=== PATIENT | male | born 1955 | race Caucasian/White ===

== ENCOUNTER 2016-06-04 09:50 | Inpatient (IN) | payer BC ==
[2016-06-04] MEDS ORDERED: DILTIAZEM HCL/D5W 125 MG/125 ML RTUINJ IV ONE (10:03)
[2016-06-04] MEDS ORDERED: DILTIAZEM HCL INJ 25 MG/5 ML VIAL ONE (10:03)
[2016-06-04] MEDS ORDERED: ASPIRIN 81 MG TABLET, CHEWABLE PO ONE (10:09)
[2016-06-04] MEDS ORDERED: DILTIAZEM HCL/D5W 125 ML IV PRN (10:11)
[2016-06-04] MEDS ORDERED: DILTIAZEM HCL INJ 25 MG/5 ML VIAL IV ONE (10:11)
[2016-06-04 10:23] LABS: ABSOLUTE BASOPHILS # (AUTO) 0.1 10^3/uL (0.0-0.2); ABSOLUTE EOSINOPHILS # (AUTO) 0.2 10^3/uL (0.0-0.6); ABSOLUTE LYMPHOCYTES (AUTO) 2.5 10^3/uL (0.5-4.7); ABSOLUTE MONOCYTES (AUTO) 0.8 10^3/uL (0.1-1.4); ABSOLUTE NEUT (AUTO) 8.4 10^3/uL (1.7-8.2); BASOPHILS % (AUTO) 0.8 % (0-2); EOSINOPHILS % (AUTO) 1.7 % (0-6); HEMATOCRIT 40.7 % (37.9-51.0); HEMOGLOBIN 13.3 g/dL (13.5-17.0); HGB HCT DIFFERENCE -0.8; LYMPHOCYTES % (AUTO) 20.8 % (13-45); MEAN CORPUSCULAR HEMOGLOBIN 27.4 pg (27.0-33.4); MEAN CORPUSCULAR HGB CONC 32.7 g/dL (32.0-36.0); MEAN CORPUSCULAR VOLUME 84 fl (80-97); MONOCYTES % (AUTO) 6.4 % (3-13); RED BLOOD COUNT 4.85 10^6/uL (4.35-5.55); SEGMENTED NEUTROPHILS % (AUTO) 70.3 % (42-78); WHITE BLOOD COUNT 11.9 10^3/uL (4.0-10.5)
--- NOTE | 2016-06-04 10:23 | ER Document Report ---
ED Cardiac - General Chief Complaint: Chest Pain > 30 Stated Complaint: CHEST PAIN Time seen by provider: 10:19 Mode of Arrival: Ambulatory Information source: Patient Notes: This is a 61-year-old man with no prior medical problems who presents to the emergency room with 2 days gradual onset of shortness of breath and dyspnea on exertion. The patient does report palpitations. The patient denies any chest pain. He denies any recent fevers, chills, or illnesses. No history of GI bleeding. No history of coronary artery disease. No history of strokes. No history of an irregular heartbeat. Past medical history: None Past surgical history: None Medicines: None No known drug allergies Social: Denies alcohol, last smoked 15 years ago (15 year pack history before then). TRAVEL OUTSIDE OF THE [place] IN LAST 30 DAYS: No - HPI Patient complains to provider of: Palpitations, Shortness of breath Use of: denies: Alcohol, Amphetamines, Bath salts, Caffeine, Cocaine, Decongestants, Other Was the onset of pain: Gradual Chest pain location: No: Substernal, Axillary, Back, Pleuritic, Under breast, Other Quality of pain: denies: None, Constant, Intermittent, Mild, Moderate, Severe, Achy, Burning, Constriction, Cramping, Crushing, Dull, Heaviness, Incisional, Indigestion, Numbness, Pressure, Radiating, Sharp, Stabbing, Tearing, Throbbing , Tightness, Tingling, Other Chest pain radiation location: denies: Left jaw, Left arm, Left shoulder, Right jaw, Right arm, Right shoulder, Back, Neck, None Severity now: None Pain level currently: Denies Cardiac risk factors: Hypertension, Smoker - [id number] history Associated symptoms: Shortness of breath Exacerbated by: Activity Relieved by: Rest Similar symptoms previously: No Recently seen / treated by doctor: No - Related Data Allergies/Adverse Reactions: No Known Allergies Allergy (Verified 06/04/16 12:53) Home Medications: Current Home Medications No Home Medications 06/04/16 [History] Past Medical History - General Information source: Patient - Social History Smoking Status: Former Smoker Cigarette use (# per day): No Chew tobacco use (# tins/day): No Smoking Education Provided: No Frequency of alcohol use: None Drug Abuse: None Lives with: Alone Family History: Reviewed & Not Pertinent Patient has suicidal ideation: No Patient has homicidal ideation: No - Medical History Medical History: Negative Surgical Hx: Negative Review of Systems - Review of Systems Constitutional: denies: Chills, Fever EENT: No symptoms reported Cardiovascular: See HPI Respiratory: See HPI Gastrointestinal: No symptoms reported Genitourinary: No symptoms reported Male Genitourinary: No symptoms reported Musculoskeletal: No symptoms reported Skin: No symptoms reported Hematologic/Lymphatic: No symptoms reported Neurological/Psychological: No symptoms reported Physical Exam - Vital signs Vitals: Resp BP Pulse Ox 35 H 186/130 H 99 06/04/16 10:02 06/04/16 10:02 06/04/16 10:02 Notes: Physical exam: GENERAL: 61-year-old man, looks somewhat apprehensive, tachypnea, oxygen saturation 99% on 2 L. He denies chest pain at this time. He is hypertensive and tachycardic with a ventricular rate of 190. HEAD: Atraumatic, normocephalic. EYES: Pupils equal round and reactive to light, extraocular movements intact, sclera anicteric, conjunctiva are normal. ENT: TMs normal, nares patent, oropharynx clear without exudates. Moist mucous membranes. NECK: Normal range of motion, supple without lymphadenopathy or JVD. LUNGS: Breath sounds clear to auscultation bilaterally and equal. No wheezes rales or rhonchi. HEART: Tachycardia and irregular without murmurs, rubs or gallops. ABDOMEN: Soft, normoactive bowel sounds. No tenderness to palpation. No guarding, no rebound. No masses appreciated. EXTREMITIES: 1+ edema lower extremities bilaterally NEUROLOGICAL: Cranial nerves II through XII grossly intact. Normal speech, normal gait. PSYCH: Normal mood, normal affect. SKIN: Warm, Dry, normal turgor, no rashes or lesions noted. Course - Vital Signs Vital signs: Temp Pulse Resp BP Pulse Ox 97.8 F 140 H 20 137/97 H 96 06/04/16 17:57 06/04/16 18:45 06/04/16 17:57 06/04/16 18:30 06/04/16 17:57 - Laboratory Result Diagrams: 06/04/16 10:06 06/04/16 10:06 Laboratory results interpreted by me: 06/04/16 06/04/16 06/04/16 10:06 10:06 10:06 WBC 11.9 H Hgb 13.3 L RDW 15.0 H Absolute Neutrophils 8.4 H BUN 21 H Glucose 129 H ALT 85 H NT-Pro-B Natriuret Pep 6910 H TSH 06/04/16 10:06 WBC Hgb RDW Absolute Neutrophils BUN Glucose ALT NT-Pro-B Natriuret Pep TSH 0.39 L - Diagnostic Test Radiology reviewed: Image reviewed, Reports reviewed - Chest x-ray shows pulmonary congestion - EKG Interpretation by Fl Rate: Tachycardia Rhythm: A.Fib - EKG shows atrial fibrillation with a ventricular rate of 190, no acute ST changes. Critical Care Note - Critical Care Note Total time excluding time spent on procedures (mins): 90 Discharge - Discharge Clinical Impression: Atrial fibrillation with RVR, CHF Condition: Serious Disposition: ADMITTED INPATIENT Admitting Provider: Hospitalist - Dr Kruse Unit Admitted: [facility]
[2016-06-04 10:32] LABS: PROTHROMBIN TIME 13.6 SEC (11.4-15.4)
[2016-06-04 10:40] LABS: ALANINE AMINOTRANSFERASE 85 U/L (21-72); ALKALINE PHOSPHATASE 74 U/L (38-126); ANION GAP 14 (5-19); ASPARTATE AMINO TRANSFERASE 51 U/L (17-59); BILIRUBIN,TOTAL 0.9 mg/dL (0.2-1.3); BLOOD UREA NITROGEN 21 mg/dL (7-20); CALCIUM 9.2 mg/dL (8.4-10.2); CARBON DIOXIDE 22 mmol/L (22-30); CHLORIDE 102 mmol/L (98-107); CREATINE KINASE 93 U/L (55-170); CREATININE RESULT 1.03 mg/dL (0.52-1.25); GLUCOSE 129 mg/dL (75-110); MAGNESIUM 2.1 mg/dL (1.6-2.3); POTASSIUM 4.6 mmol/L (3.6-5.0); SODIUM 137.9 mmol/L (137-145); TOTAL PROTEIN 7.3 g/dL (6.3-8.2)
[2016-06-04 10:55] LABS: CREATINE KINASE MB 2.95 ng/mL (<4.55); TROPONIN I 0.03 ng/mL
[2016-06-04 11:13] LABS: THYROID STIMULATING HORMONE 0.39 uIU/mL (0.47-4.68)
--- NOTE | 2016-06-04 13:01 | EKG REPORT ---
SEVERITY:- ABNORMAL ECG - ATRIAL FIBRILLATION/ FLUTTER WITH RAPID V-RATE BORDERLINE RIGHT AXIS DEVIATION LOW VOLTAGE IN FRONTAL LEADS ST DEPRESSION, PROBABLY RATE RELATED : Confirmed by: Roney Saini 04-Jun-2016 13:00:09
[2016-06-04] MEDS ORDERED: ENOXAPARIN SODIUM INJ 100 MG/1 ML DISP.SYRIN SUBCUT ONE (13:52)
[2016-06-04] MEDS ORDERED: FUROSEMIDE INJ/PF 40 MG/4 ML SDV IV ONE (13:53)
[2016-06-04] MEDS ORDERED: ACETAMINOPHEN 325 MG TABLET PO PRN (14:48)
[2016-06-04] MEDS ORDERED: ONDANSETRON HCL INJ/PF 4 MG/2 ML SDV IV PRN (14:54)
--- NOTE | 2016-06-04 15:13 | PDOC H&P ---
History of Present Illness Admission Date/PCP: 06/04/16 14:28 Patient complains of: Shortness of breath on exertion History of Present Illness: SAVANNAH TAVARES is a 61 year old male, with no significant past medical history started to develop shortness of breath on exertion for the past 4-5 days. 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 Patient dies physical activity with lifting and carrying heavy loads by denies having any symptoms of chest pain. For the past 5 days however he started to develop dyspnea on exertion. There is no nausea or vomiting. No chest pain at all. There is no diaphoresis. No dizziness or lightheadedness. Denies paroxysmal nocturnal dyspnea or any orthopnea. Patient likewise started to develop lower extremity edema at about the same time. The patient went to the emergency room because of increasing symptoms. Heart rate noted to be 190. The patient was given Cardizem intravenously as reportedly patient is on rapid atrial fibrillation. Eventually he was maintained on the drip and was referred for admission. The patient denies intake of caffeine but he admits taking some mucolytic and possible decongestants [id number]. He has been taking it for the past 4-5 days. He has some mild chest congestion otherwise no sinus congestion or pressure. Past Medical History Medical History: None - Patient denies any at all Past Surgical History Past Surgical History: Reports: Cardiac Catheterization - "negative" Social History Information Source: Patient Smoking Status: Former Smoker Frequency of Alcohol Use: Rare Hx Recreational Drug Use: No Drugs: None Family History Family History: CVA, Other - Heart disease Parental Family History Reviewed: Yes Children Family History Reviewed: Yes Sibling(s) Family History Reviewed.: Yes Medication/Allergy Home Medications: No Home Medications 06/04/16 Allergies/Adverse Reactions: No Known Allergies Allergy (Verified 06/04/16 12:53) Review of Systems Constitutional: ABSENT: chills, fever(s), headache(s), night sweats, weight gain , weight loss Eyes: ABSENT: visual disturbances Ears: ABSENT: hearing changes Nose, Mouth, and Throat: ABSENT: mouth pain, sore throat Cardiovascular: PRESENT: dyspnea on exertion, edema, orthropnea. ABSENT: chest pain, palpitations Respiratory: PRESENT: cough - Minimal, dyspnea. ABSENT: hemoptysis Gastrointestinal: ABSENT: abdominal pain, constipation, diarrhea, hematemesis, hematochezia, melena, nausea, vomiting Genitourinary: ABSENT: dysuria, hematuria Musculoskeletal: ABSENT: joint swelling Integumentary: ABSENT: pruritus, rash, wounds Neurological: ABSENT: abnormal gait, abnormal speech, confusion, dizziness, focal weakness, syncope Psychiatric: ABSENT: anxiety, depression, homidical ideation, suicidal ideation Endocrine: ABSENT: cold intolerance, heat intolerance, polydipsia, polyuria Hematologic/Lymphatic: ABSENT: easy bleeding, easy bruising Physical Exam Vital Signs: Temp Pulse Resp BP Pulse Ox 125 H 24 H 161/110 H 96 06/04/16 12:29 06/04/16 14:00 06/04/16 13:31 06/04/16 14:00 General appearance: PRESENT: no acute distress, well-developed, well-nourished Head exam: PRESENT: atraumatic, normocephalic Eye exam: PRESENT: conjunctiva pink, EOMI, PERRLA. ABSENT: scleral icterus Ear exam: PRESENT: normal external ear exam Mouth exam: PRESENT: moist, neck supple, tongue midline Throat exam: ABSENT: post pharyngeal erythema, tonsillar erythema Neck exam: ABSENT: carotid bruit, JVD, lymphadenopathy, thyromegaly Respiratory exam: PRESENT: decreased breath sounds - Lower lung yanes bilateral , rales - Lower lung yanes bilaterally. ABSENT: rhonchi, wheezes Cardiovascular exam: PRESENT: irregular rhythm, +S1, +S2. ABSENT: diastolic murmur, rubs, systolic murmur Pulses: PRESENT: normal dorsalis pedis pul Vascular exam: PRESENT: normal capillary refill GI/Abdominal exam: PRESENT: normal bowel sounds, soft. ABSENT: distended, guarding, mass, organolmegaly, rebound, tenderness Rectal exam: PRESENT: deferred Extremities exam: PRESENT: full ROM, pedal edema, +1 edema. ABSENT: calf tenderness, clubbing Neurological exam: PRESENT: alert, awake, oriented to person, oriented to place , oriented to time, oriented to situation Psychiatric exam: PRESENT: appropriate affect, normal mood. ABSENT: homicidal ideation, suicidal ideation Skin exam: PRESENT: dry, intact, warm. ABSENT: cyanosis, rash Results Impressions: Chest X-Ray 06/04/16 10:10 IMPRESSION: Mild bilateral perihilar pulmonary edema, trace bilateral pleural effusions. Chest/Abdomen CTA 06/04/16 11:09 IMPRESSION: Moderate bilateral pleural effusions right greater than left. No CT angio evidence of acute pulmonary emboli. Mild mediastinal adenopathy. Assessment & Plan - Diagnosis (1) Atrial fibrillation with RVR Is this a current diagnosis for this admission?: Yes (2) Pleural effusion Is this a current diagnosis for this admission?: Yes - Time Time Spent: 50 to 70 Minutes - Inpatient Certification Based on my medical assessment, after consideration of the patient's comorbidities, presenting symptoms, or acuity I expect that the services needed warrant INPATIENT care.: Yes I certify that my determination is in accordance with my understanding of Medicare's requirements for reasonable and necessary INPATIENT services [42 CFR 412.3e].: Yes Medical Necessity: Significant Comorbidiites Make Outpatient Treatment Too Risky , Need For Continuous Telemetry Monitoring, Risk of Complication if Not Cared For in Hospital, Risk of Diagnosis Which Will Require Inpatient Eval/Care/ Monitoring Post Hospital Care: D/C Engineering Aide Documentation - Plan Summary Plan Summary: The patient will be admitted to [facility]. We will increase the Cardizem drip to 10 mg per hour and titrate to control the patient's heart rate below 100. In the meantime we will start the patient on full dose Lovenox. Case discussed with cardiology service evaluated the patient. We will likewise consult pulmonary for thoracentesis. I would obtain cardiac enzymes 3. I will begin intravenous Lasix. Supplemental oxygen will be given. Further testing depends on initial evaluation as outlined above.
[2016-06-04] MEDS: DOCUSATE SODIUM 100 MG CAPSULE PO SCH (19:03)
[2016-06-04] MEDS: ENOXAPARIN SODIUM INJ 100 MG/1 ML DISP.SYRIN SUBCUT SCH (21:38)
[2016-06-04] MEDS: FUROSEMIDE INJ/PF 40 MG/4 ML SDV IV SCH (21:40)
[2016-06-04] MEDS: DILTIAZEM HCL/D5W 125 ML IV PRN (21:40)
[2016-06-04 23:36] LABS: URINE BARBITURATES SCREEN NEGATIVE; URINE METHADONE SCREEN NEGATIVE; URINE OPIATES LOW NEGATIVE; URINE PHENCYCLIDINE SCREEN NEGATIVE
[2016-06-05 04:46] LABS: HEMATOCRIT 35.4 % (37.9-51.0); HEMOGLOBIN 11.7 g/dL (13.5-17.0); HGB HCT DIFFERENCE -0.3; MEAN CORPUSCULAR HEMOGLOBIN 27.6 pg (27.0-33.4); MEAN CORPUSCULAR HGB CONC 33.1 g/dL (32.0-36.0); MEAN CORPUSCULAR VOLUME 84 fl (80-97); RED BLOOD COUNT 4.24 10^6/uL (4.35-5.55); WHITE BLOOD COUNT 8.3 10^3/uL (4.0-10.5)
[2016-06-05 05:08] LABS: BLOOD UREA NITROGEN 18 mg/dL (7-20); CALCIUM 8.9 mg/dL (8.4-10.2); CARBON DIOXIDE 26 mmol/L (22-30); CHLORIDE 100 mmol/L (98-107); CREATINE KINASE 51 U/L (55-170); CREATININE RESULT 0.99 mg/dL (0.52-1.25); GLUCOSE 103 mg/dL (75-110); MAGNESIUM 2.1 mg/dL (1.6-2.3); PHOSPHORUS 5.1 mg/dL (2.5-4.5); POTASSIUM 4.4 mmol/L (3.6-5.0)
[2016-06-05 05:10] LABS: ANION GAP 12 (5-19); SODIUM 138.2 mmol/L (137-145)
[2016-06-05] MEDS: DILTIAZEM HCL/D5W 125 ML IV PRN ×3 (05:19→17:58)
[2016-06-05] MEDS ORDERED: LANSOPRAZOLE 30 MG TAB.RAP.DR PO SCH (06:00)
[2016-06-05] MEDS: FUROSEMIDE INJ/PF 40 MG/4 ML SDV IV SCH (09:31)
[2016-06-05] MEDS: ENOXAPARIN SODIUM INJ 100 MG/1 ML DISP.SYRIN SUBCUT SCH (09:32)
--- NOTE | 2016-06-05 09:37 | EKG REPORT ---
SEVERITY:- ABNORMAL ECG - ATRIAL FIBRILLATION, V-RATE 80-87 VENTRICULAR PREMATURE COMPLEXES ABNORMAL T, CONSIDER ISCHEMIA, LATERAL LEADS : Confirmed by: Roney Saini 05-Jun-2016 09:36:56
[2016-06-05] MEDS: DOCUSATE SODIUM 100 MG CAPSULE PO SCH ×2 (09:41→17:59)
[2016-06-05] MEDS ORDERED: DILTIAZEM HCL 60 MG TABLET PO SCH (12:00)
[2016-06-05] MEDS ORDERED: METOPROLOL TARTRATE PF/INJ 5 MG/5 ML SDV IV ONE (13:00)
--- NOTE | 2016-06-05 13:45 | PDOC PROGRESS REPORT ---
Subjective Progress Note for:: 06/05/16 Subjective:: The patient is feeling better today. Lower extremity edema is better. Shortness of breath is better. No chest pain at all. No chills or fever. No purulent expectoration. Still with intermittent uncontrolled atrial fibrillation. No PND or orthopnea at this time. Physical Exam Vital Signs: Temp Pulse Resp BP Pulse Ox 98.2 F 108 H 16 108/68 93 06/05/16 12:47 06/05/16 13:00 06/05/16 12:47 06/05/16 13:00 06/05/16 12:47 Intake & Output 06/04/16 06/05/16 06/06/16 06:59 06:59 06:59 Intake Total 661 Output Total 3125 Balance -2464 Weight 101.7 kg General appearance: PRESENT: no acute distress, cooperative Head exam: PRESENT: normocephalic Eye exam: PRESENT: EOMI Mouth exam: PRESENT: moist, neck supple Neck exam: ABSENT: JVD Respiratory exam: PRESENT: rales - Noted posteriorly bilateral with decreased breath sounds bilateral and lower lung field. ABSENT: wheezes Cardiovascular exam: PRESENT: irregular rhythm, tachycardia - Slightly. ABSENT : gallop GI/Abdominal exam: PRESENT: soft. ABSENT: distended, tenderness Extremities exam: PRESENT: other - Trace lower extremity edema Neurological exam: PRESENT: alert, awake, oriented to situation Skin exam: PRESENT: dry, warm. ABSENT: cyanosis Results Laboratory Results: 06/05/16 04:25 06/05/16 04:25 06/05/16 06/05/16 04:25 04:25 WBC 8.3 RBC 4.24 L Hgb 11.7 L Hct 35.4 L MCV 84 MCH 27.6 MCHC 33.1 RDW 15.0 H Plt Count 232 Sodium 138.2 Potassium 4.4 Chloride 100 Carbon Dioxide 26 Anion Gap 12 BUN 18 Creatinine 0.99 Est GFR ( Amer) > 60 Est GFR (Non-Af Amer) > 60 Glucose 103 Calcium 8.9 Phosphorus 5.1 H Magnesium 2.1 06/04/16 06/04/16 06/04/16 16:20 16:20 22:15 Creatine Kinase 87 72 Troponin I 0.042 06/04/16 06/05/16 06/05/16 22:15 04:25 04:25 Creatine Kinase 51 L Troponin I 0.041 0.035 Impressions: Chest X-Ray 06/04/16 10:10 IMPRESSION: Mild bilateral perihilar pulmonary edema, trace bilateral pleural effusions. Chest/Abdomen CTA 06/04/16 11:09 IMPRESSION: Moderate bilateral pleural effusions right greater than left. No CT angio evidence of acute pulmonary emboli. Mild mediastinal adenopathy. Assessment & Plan - Diagnosis (1) Atrial fibrillation with RVR Is this a current diagnosis for this admission?: Yes (2) Pleural effusion Is this a current diagnosis for this admission?: Yes - Time Time Spent with patient: 25-34 minutes - Plan Summary Plan Summary: We are going to continue the Cardizem drip. Cardiology wants to wait for the echocardiogram prior to weaning Cardizem or transitioning to oral. In the meantime echocardiogram will be obtained. Continue diuretics. Follow-up chest x-ray and a morning. Monitor electrolytes and replace accordingly. Awaiting pulmonary evaluation of the pleural effusion.
[2016-06-05] MEDS ORDERED: EPINEPHRINE INJ 1 MG/10 ML DISP.SYRIN ONE ×2 (13:54→15:38)
[2016-06-05 15:08] LABS: MAGNESIUM 2.1 mg/dL (1.6-2.3); POTASSIUM 4.3 mmol/L (3.6-5.0)
[2016-06-05] MEDS ORDERED: PHARMACY COMMUNICATION ORDER MC NR ×2 (15:30)
[2016-06-05] MEDS: PROPOFOL 100 ML IV PRN ×2 (15:42→17:56)
[2016-06-05 16:25] LABS: APPEARANCE,URINE SLIGHTLY-CLOUDY; BILIRUBIN,URINE NEGATIVE (NEGATIVE); GLUCOSE, URINE NEGATIVE (NEGATIVE); KETONES,URINE NEGATIVE (NEGATIVE); LEUKOCYTE ESTERASE,URINE NEGATIVE (NEGATIVE); NITRITE,URINE NEGATIVE (NEGATIVE); PROTEIN,URINE >=500 mg/dL (NEGATIVE); URINE SPECIFIC GRAVITY 1.024; UROBILINOGEN,URINE NEGATIVE mg/dL (<2.0)
[2016-06-05 16:38] LABS: ARTERIAL BLOOD BASE EXCESS -0.3 mmol/L; ARTERIAL BLOOD O2 SATURATION 99.5 % (94-98)
--- NOTE | 2016-06-05 16:45 | PDOC TRANSFER SUMMARY ---
General Admission Date/PCP: 06/04/16 14:48 Admission Date: 06/04/16 Transfer Date: 06/05/16 Accepting Facility: [facility] Accepting Physician: Dr. Wilson Resuscitation Status: Full Code - Transfer Diagnosis (1) Acute respiratory failure Is this a current diagnosis for this admission?: Yes (2) Atrial fibrillation with RVR Is this a current diagnosis for this admission?: Yes (3) Pleural effusion Is this a current diagnosis for this admission?: Yes (4) CHF (congestive heart failure) Is this a current diagnosis for this admission?: Yes (5) Ventricular tachycardia Is this a current diagnosis for this admission?: Yes - Transfer Medications Home Medications: No Home Medications 06/04/16 Transfer Medications: Current Medications Acetaminophen (Tylenol 325 Mg Tablet) 650 mg PO Q4HP PRN PRN Reason: fever Stop: 07/04/16 14:47 Docusate Sodium (Colace 100 Mg Capsule) 100 mg PO BID [facility] Stop: 07/04/16 17:59 Last Admin: 06/05/16 09:41 Dose: 100 mg Enoxaparin Sodium (Lovenox Inj 100 Mg/1 Ml Disp.Syrin) 85 mg SUBCUT Q12 [facility] Stop: 07/04/16 21:59 Last Admin: 06/05/16 09:32 Dose: 85 mg Furosemide (Lasix Inj/Pf 40 Mg/4 Ml Sdv) 40 mg IV Q12 [facility] Stop: 07/04/16 21:59 Last Admin: 06/05/16 09:31 Dose: 40 mg Diltiazem HCl (Cardizem Rtu Inj 125 Mg-D5w 125 Ml Premix) 125 mls @ 0 mls/hr IV CONTINUOUS PRN; Protocol; Titrate PRN Reason: THIS MED IS NOT "PRN" Stop: 07/04/16 10:10 Last Admin: 06/05/16 13:43 Dose: 125 ml Propofol (Diprivan Rtu 1000 Mg/100 Ml Inf.Bottle) 100 mls @ 0 mls/hr IV CONTINUOUS PRN; Titrate PRN Reason: THIS MED IS NOT "PRN" Stop: 07/05/16 15:17 Last Admin: 06/05/16 15:42 Dose: 100 ml Lansoprazole (Prevacid 30 Mg Odt Tablet) 30 mg PO Q6AM [facility] Stop: 07/05/16 05:59 Last Admin: 06/05/16 05:19 Dose: 30 mg Ondansetron HCl (Zofran Inj/Pf 4 Mg/2 Ml Sdv) 4 mg IV Q6HP PRN PRN Reason: nausea and vomiting Stop: 07/04/16 14:53 Pharmacy Profile Note (Medication Communication Order) 1 each .NOTICE NR Stop: 07/05/16 15:29 Pharmacy Profile Note (Medication Communication Order) 1 each .NOTICE NR Stop: 07/05/16 15:29 - Allergies Allergies/Adverse Reactions: No Known Allergies Allergy (Verified 06/04/16 12:53) - Diet/Activity Discharge Diet: Other (Comments) - NPO Discharge Activity: Bedrest Hospital Course Hospital Course: The patient was admitted to the stepdown unit. The patient was maintained on Cardizem drip to control the heart rate. Cardiac enzymes were obtained and they were indeterminate. The patient was likewise started on intravenous Lasix for heart failure. Full dose anticoagulation with Lovenox was likewise started. Patient was referred to cardiology for further evaluation and management. CT scan of the chest shows no pulmonary embolism but did show moderate pleural effusion bilaterally. His TSH was low but the free T4 was normal. He had several ectopies and a dose of beta sara was given by cardiology service. Potassium is above 4. Magnesium is above 2. Pulmonary was consulted as well for the pleural effusion. He suddenly developed ventricular tachycardia with alteration in his mental status. It was pulseless. Cardiopulmonary resuscitation was administered and a dose of epinephrine and shot were given and converted him back to atrial fibrillation. Patient was transferred to the intensive care unit and intubated. Echocardiogram preliminary showing severe mitral regurgitation and hypokinesis on the mid inferior wall. He was placed on diprivan for sedation. He developed hypotension and Cardizem drip was discontinued. He was placed on [place]- Synephrine for blood pressure support. Patient was likewise given saline boluses. Cardiology recommended the patient to be transferred to a tertiary facility for cardiac catheterization. [facility] was contacted and Dr. Wilson from [facility] responded and accepted the patient. The rest of the hospital stay was unremarkable. Physical Exam Vital Signs: Temp Pulse Resp BP Pulse Ox 98.4 F 112 H 21 H 117/71 99 06/05/16 16:00 06/05/16 16:00 06/05/16 16:00 06/05/16 16:00 06/05/16 16:00 Intake & Output 06/04/16 06/05/16 06/06/16 06:59 06:59 06:59 Intake Total 661 Output Total 3125 Balance -2464 Weight 101.7 kg General appearance: PRESENT: no acute distress, other - Intubated, on diprivan Head exam: PRESENT: normocephalic Eye exam: PRESENT: conjunctiva pink Mouth exam: PRESENT: moist, neck supple Neck exam: PRESENT: JVD - Prominent neck vein Respiratory exam: PRESENT: crackles - Occasional bilateral, decreased breath sounds - Lower lung yanes bilateral Cardiovascular exam: PRESENT: irregular rhythm, +S1, +S2. ABSENT: gallop GI/Abdominal exam: PRESENT: hypoactive bowel sounds, soft. ABSENT: distended Extremities exam: PRESENT: other - Trace lower extremity edema Skin exam: PRESENT: dry, warm. ABSENT: cyanosis Results Laboratory Results: 06/05/16 04:25 06/05/16 14:49 06/05/16 06/05/16 06/05/16 04:25 04:25 14:49 WBC 8.3 RBC 4.24 L Hgb 11.7 L Hct 35.4 L MCV 84 MCH 27.6 MCHC 33.1 RDW 15.0 H Plt Count 232 Sodium 138.2 Potassium 4.4 4.3 Chloride 100 Carbon Dioxide 26 Anion Gap 12 BUN 18 Creatinine 0.99 Est GFR ( Amer) > 60 Est GFR (Non-Af Amer) > 60 Glucose 103 Calcium 8.9 Phosphorus 5.1 H Magnesium 2.1 2.1 Urine Color Urine Appearance Urine pH Ur Specific [place] Urine Protein Urine Glucose (UA) Urine Ketones Urine Blood Urine Nitrite Ur Leukocyte Esterase Urine WBC (Auto) Urine RBC (Auto) 06/05/16 06/05/16 15:15 16:05 WBC RBC Hgb Hct MCV MCH MCHC RDW Plt Count Sodium Potassium Chloride Carbon Dioxide Anion Gap BUN Creatinine Est GFR ( Amer) Est GFR (Non-Af Amer) Glucose Calcium Phosphorus Magnesium 2.1 Urine Color [place] Urine Appearance SLIGHTLY-CLOUDY Urine pH 5.0 Ur Specific [place] 1.024 Urine Protein >=500 H Urine Glucose (UA) NEGATIVE Urine Ketones NEGATIVE Urine Blood NEGATIVE Urine Nitrite NEGATIVE Ur Leukocyte Esterase NEGATIVE Urine WBC (Auto) 4 Urine RBC (Auto) 5 06/04/16 06/04/16 06/04/16 16:20 16:20 22:15 Creatine Kinase 87 72 Troponin I 0.042 06/04/16 06/05/16 06/05/16 22:15 04:25 04:25 Creatine Kinase 51 L Troponin I 0.041 0.035 Impressions: Chest X-Ray 06/04/16 10:10 IMPRESSION: Mild bilateral perihilar pulmonary edema, trace bilateral pleural effusions. Chest/Abdomen CTA 06/04/16 11:09 IMPRESSION: Moderate bilateral pleural effusions right greater than left. No CT angio evidence of acute pulmonary emboli. Mild mediastinal adenopathy. Plan Discharge Plan: Transferred to [facility] cardiology service for further evaluation and management. Time Spent: Less than 30 Minutes
--- NOTE | 2016-06-05 16:49 | Progress Note ---
Provider Note Provider Note: The patient around 3:00 PM developed sustained ventricular tachycardia with altered mental status and noted to be pulseless. [facility] BROWNE was called and cardiopulmonary resuscitation was instituted. The patient was given 1 dose of epinephrine and 1 dose of shock and eventually rhythm was reestablished and systolic blood pressure was greater than 100. The patient regained consciousness but with confusion and patient was transferred to the intensive care unit for intubation and critical care. Family was updated and informed about the episode.
[2016-06-05] MEDS ORDERED: PHENYLEPHRINE HCL INJ/PF 10 MG/1 ML SDV ONE (16:54)
[2016-06-05 17:08] LABS: HEMATOCRIT 38.3 % (37.9-51.0); HEMOGLOBIN 12.3 g/dL (13.5-17.0); HGB HCT DIFFERENCE -1.4; MEAN CORPUSCULAR HEMOGLOBIN 27.2 pg (27.0-33.4); MEAN CORPUSCULAR VOLUME 85 fl (80-97); RED BLOOD COUNT 4.51 10^6/uL (4.35-5.55); RED CELL DISTRIBUTION WIDTH 15.5 % (11.5-14.0); WHITE BLOOD COUNT 10.9 10^3/uL (4.0-10.5)
[2016-06-05 17:11] VITALS: BP 90/52
[2016-06-05] MEDS ORDERED: DEXTROSE 5%-WATER 250 ML with PHENYLEPHRINE HCL 40 MG IV PRN ×2 (17:15)
[2016-06-05 17:25] LABS: ALANINE AMINOTRANSFERASE 74 U/L (21-72); ALBUMIN 3.7 g/dL (3.5-5.0); ALKALINE PHOSPHATASE 70 U/L (38-126); ANION GAP 18 (5-19); ASPARTATE AMINO TRANSFERASE 41 U/L (17-59); BLOOD UREA NITROGEN 21 mg/dL (7-20); CALCIUM 9.1 mg/dL (8.4-10.2); CARBON DIOXIDE 22 mmol/L (22-30); CHLORIDE 99 mmol/L (98-107); CREATINE KINASE 53 U/L (55-170); CREATININE RESULT 1.18 mg/dL (0.52-1.25); GLUCOSE 237 mg/dL (75-110); POTASSIUM 4.1 mmol/L (3.6-5.0); SODIUM 139.3 mmol/L (137-145); TOTAL PROTEIN 6.7 g/dL (6.3-8.2)
[2016-06-05 17:37] LABS: CREATINE KINASE MB 1.37 ng/mL (<4.55); TROPONIN I 0.024 ng/mL
--- NOTE | 2016-06-05 18:45 | XCELERA REPORT ---
[address] [address] Transthoracic Echocardiogram Report Name: SAVANNAH TAVARES Age: 61 yrs Gender: Male : 1955 Patient Status: Inpatient Patient Location: ICU\S\602\S\A Study Date: 06/05/2016 02:22 PM Height: 72 in Weight: 224 lb BSA: 2.2 m2 Procedure: A two-dimensional transthoracic echocardiogram with color flow and Doppler was performed. Study Quality: Fair. Reason For Study: atrial fib / edema History: atrial fib / edema. Ordering Physician: MARIBEL ANDERSON Performed By: Silvina Schroeder Interpretation Summary The left ventricle is mildly dilated. There is normal left ventricular wall thickness. No 'True Apical 2 chamber views ' obtained.Hence cannot comment on the apical and basal Inferior and the apical and basal anterior dumont.The pposterior wall and the mid inerior dumont are hypokinetic.The mid anterior , and the rest of the LV dumont probably contract normally , and in these views the LVEF is normal,and is f 60%. There is no thrombus. The right atrium is mildly dilated. The left atrium is moderately dilated. There is no evidence of mitral valve prolapse. There is no mitral valve stenosis. There is a severe amount of mitral regurgitation There is no aortic valve stenosis There is no LVOT obstruction. No aortic regurgitation is present. There is no tricuspid stenosis. Mild ( ? to Moderate(TR.RVSP is 85 mm of Hg , with RA mean of 20. There is servere pulmonary hypertension by echo There is no pericardial effusion. MMode/2D Measurements \T\ Calculations RVDd: 2.8 cm LVIDd: 5.7 cm FS: 18.6 % Ao root diam: IVSd: 0.69 cm LVIDs: 4.6 cm EDV(Teich): 3.3 cm LVPWd: 0.63 cm 159.0 ml Ao root area: ESV(Teich): 98.7 ml 8.6 cm2 EF(Teich): 37.9 % LA dimension: 4.6 cm LVLd ap4: 7.4 cm SV(MOD-sp4): EDV(MOD-sp4): 31.0 ml 60.0 ml LVLs ap4: 5.7 cm ESV(MOD-sp4): 29.0 ml EF(MOD-sp4): 51.7 % Doppler Measurements \T\ Calculations MV E max trenton: MV P1/2t max trenton: Ao V2 max: LV V1 max P.8 cm/sec 128.3 cm/sec 90.3 cm/sec 1.9 mmHg MV P1/2t: 72.8 msec Ao max PG: LV V1 max: MVA(P1/2t): 3.0 cm2 3.3 mmHg 68.6 cm/sec MV dec slope: 516.7 cm/sec2 MV dec time: 0.24 sec PA V2 max: TR max trenton: 45.2 cm/sec 401.8 cm/sec PA max PG: TR max P.6 mmHg 0.82 mmHg Left Ventricle The left ventricle is mildly dilated. There is normal left ventricular wall thickness. No 'True Apical 2 chamber views ' obtained.Hence cannot comment on the apical and basal Inferior and the apical and basal anterior dumont.The pposterior wall and the mid inerior dumont are hypokinetic.The mid anterior , and the rest of the LV dumont probably contract normally , and in these views the LVEF is normal,and is f 60%. LV diastolic function could not be adequately assessed due to atrial fibrilation. There is no thrombus. There is no ventricular septal defect visualized. Right Ventricle The right ventricle is mildly dilated. Atria The right atrium is mildly dilated. The left atrium is moderately dilated. The interatrial septum is intact with no evidence for an atrial septal defect. Mitral Valve There is no evidence of mitral valve prolapse. There is no vegetation seen on the mitral valve. There is no mitral valve stenosis. There is a severe amount of mitral regurgitation. Aortic Valve The aortic valve is trileaflet. The aortic valve opens well. There is no aortic valvular vegetation. There is no aortic valve stenosis. There is no LVOT obstruction. No aortic regurgitation is present. Tricuspid Valve There is no tricuspid stenosis. Mild ( ? to Moderate(TR.RVSP is 85 mm of Hg , with RA mean of 20. There is servere pulmonary hypertension by echo. Pulmonic Valve There is no pulmonic valvular stenosis. There is no pulmonic valvular regurgitation. Great Vessels The aortic root is normal size. Effusions There is no pericardial effusion. : MARIBEL ANDERSON > Maribel Anderson
[2016-06-05 19:48] LABS: APPEARANCE,URINE CLEAR; BILIRUBIN,URINE NEGATIVE (NEGATIVE); GLUCOSE, URINE NEGATIVE (NEGATIVE); KETONES,URINE NEGATIVE (NEGATIVE); LEUKOCYTE ESTERASE,URINE NEGATIVE (NEGATIVE); NITRITE,URINE NEGATIVE (NEGATIVE); PROTEIN,URINE NEGATIVE (NEGATIVE); URINE SPECIFIC GRAVITY 1.009; UROBILINOGEN,URINE NEGATIVE mg/dL (<2.0)
[2016-06-05 20:09] LABS: RBC,URINE NONE SEEN /HPF; WBC,URINE NONE SEEN /HPF
--- NOTE | 2016-06-05 21:46 | EKG REPORT ---
SEVERITY:- ABNORMAL ECG - ATRIAL FIBRILLATION, V-RATE 83-139 MULTIFORM VENTRICULAR PREMATURE COMPLEXES ABERRANT COMPLEX, POSSIBLY SUPRAVENTRICULAR NONSPECIFIC T ABNORMALITIES, LATERAL LEADS : Confirmed by: Roney Saini 05-Jun-2016 21:45:58
--- NOTE | 2016-06-05 23:03 | PROGRESS NOTE E ---
Progress Note NAME: SAVANNAH TAVARES : 1955 AGE: 61Y DATE: 06/05/2016 ROOM: 602 CRITICAL CARE NOTE Note I was with the patient from about 4:10 p.m. to 5 p.m., including when I spoke with the paramedics who were transporting the patient to [facility] via helicopter. SUBJECTIVE: Note that the patient was doing well when the nurses phoned that he was having seizure like activity in the IMCU and subsequently they noted a supraventricular tachycardia. The patient was given brief CPR and was defibrillated x1 and the patient regained atrial fibrillation and regained his blood pressure. He was a little unresponsive and he was transferred to the ICU and was intubated. Subsequent to that he was still on the Cardizem at 10 mg per hour. Since I looked at the patient's echocardiogram, see report below, and in view of the severe pulmonary hypertension did not want to start the patient on amiodarone and also since now there was doubt whether the patient's CHADS score was 1. I did not want to convert him to sinus rhythm without the patient having a few of anticoagulation. Subsequent to the patient being intubated and sedated in the ICU he suddenly dropped his blood pressure. His Cardizem was discontinue and his Diprivan drip was also decreased but the patient's blood pressure remained the same. At which time the patient also was given a bolus of 250 normal saline. The blood pressure did come up to 105 and subsequently the patient was started on Lake-Synephrine at 20 mcg per minute. This kept the blood pressure stable around 105. At this time Dr. Kruse had discussed with the [facility] about transfer and I also spoke to Dr. Barone and gave him a report of the preliminary findings on the echocardiography which are noted below. OBJECTIVE: GENERAL: At present the patient remains to be stable and he still is in atrial fibrillation with a ventricular response around 96-100. VITAL SIGNS: His blood pressure is 105/87. His respirations are 14 per minute. The patient is on a ventilator. His respiratory rate was 22 on the ventilator and his O2 saturations were 100% on an FiO2 of 100%. HEENT: On examination head is atraumatic, normocephalic. Eyes: Pupils are equal, round and regular, reacted to light. ENT is negative. NECK: Supple. There is JVD. Carotids are equal. There is no bruit. Trachea is central. LUNGS: There are absent breath sounds, right greater than left in the right and left base and midzone. There are few scattered rhonchi. HEART: S1 and S2 is heard. S1 is of variable intensity. There is a murmur of MR and TR. There is a questionable S3 gallop present. ABDOMEN: Soft, nontender. There is no hepatosplenomegaly. Bowel sounds are well heard. EXTREMITIES: Femorals are diminished. There is 1+ to 2- pedal edema bilaterally. Leg pulses are diminished. There are no femoral bruits. CENTRAL NERVOUS SYSTEM: Not examined. PSYCHIATRIC: Not examined. IMAGING STUDIES: The patient's KUB x-ray showed NG tube tip in the stomach. LABORATORY DATA: The patient's repeat labs show a sodium of 139.3, potassium 4.1, chloride is 99, CO2 is 22, BUN is 29, creatinine is 1.18, GFR is greater than 60, glucose is 237, calcium is 9.1. His liver function test show a slightly high ALT of 74. His troponin I is 0.024. The patient's white count is 10,900; hemoglobin is 12.3, hematocrit is 38.3, platelet count is 337,000. The patient's pH is 7.33, pCO2 is 50.6, pO2 is 259.3, and his O2 sats 99.5, FiO2 is 100%. ASSESSMENT: 1. VENTRICULAR TACHYCARDIA. 2. CARDIOPULMONARY ARREST STATUS POST INTUBATION. 3. ACUTE RESPIRATORY FAILURE WITH HYPOXEMIA. 4. ATRIAL FIBRILLATION WITH RAPID VENTRICULAR RESPONSE AT PRESENT CONTROLLED. 5. TRANSIENT HYPOTENSION. 6. SEVERE MITRAL REGURGITATION ? ISCHEMIC MITRAL REGURGITATION. 7. SEVERE PULMONARY HYPERTENSION. 8. WALL MOTION ABNORMALITIES ON THE ECHOCARDIOGRAM ? CORONARY ARTERY DISEASE. 9. POSSIBLE UNTREATED HYPERTENSION. ECHOCARDIOGRAM: Note the echocardiogram shows that the left ventricle is mildly dilated. There is no left ventricular hypertrophy. True apical dual chamber views are not obtained but the mid inferior wall and the posterior wall are hypokinetic. The overall left ventricular is normal at 60%. The right ventricle appears to be dilated. There is mild perhaps moderate tricuspid regurgitation with severe pulmonary hypertension. The peak pressure gradient is 65 mmHg and added 20 since the inferior vena cava is distended and dilated at 2.9 cm and does not move to inspiration. Hence the right ventricular systolic pressure is 85 mmHg which is severe pulmonary hypertension. Also the echocardiogram showed a severe mitral regurgitation and moderate left atrial enlargement. Hence the final diagnosis. RECOMMENDATIONS: The patient is stable. We will continue the patient on Lake-Synephrine and increase as tolerated to keep the mean arterial pressure 65 or above. Continue the patient on Lovenox. Continue respiratory support. Would recommend antibiotics. The patient is being transferred to [facility], their team is here. I have spoken to one of the members about the preliminary echo findings which I have handwritten on a progress note and given to the patient since there might be some more time for the echo to be downloaded into the reading station. TIME SPENT: Note at least 40 minutes of critical care time spent on this patient. I discussed with the hospitalist, discussed with the patient's sister and [id number] fully. They would like the patient to followup with me after he comes back from [facility] and, hence, I have given them my cell phone. They know from Dr. Lewis, who was the business process specialist here when I first came in and the patient's mother was his patient, and they know me from that time. DICTATING PHYSICIAN: FUENTES ANDERSON M.D. [id number] PHY#: [id number] ID: [id number] JOB#: [id number] ACCT: [id number] cc: >
--- NOTE | 2016-06-06 01:59 | CONSULTATION REPORT E ---
Consultation Report NAME: SAVANNAH TAVARES : 1955 AGE: 61Y DATE: 06/05/2016 602 A TO: FUENTES ANDERSON M.D. FROM: Requesting Physician REASON FOR CONSULTATION: Shortness of breath. HISTORY OF PRESENT ILLNESS: The patient is a 61-year-old man, who states he has no past medical history, but he states since the last 4 to 5 days has been having progressively increasing dyspnea on exertion to rest shortness of breath and also leg edema which is slightly improved after treatment with IV Lasix in the hospital. Surprisingly, he denies any chest pain or discomfort. He also states that he has intermittent palpitations like fluttering of his heart, but no dizziness or syncope. When he came into the hospital, his blood pressure was very high. It was like in the 180s/120s, and the heart rate was in the 180s with atrial fibrillation with rapid ventricular response, and the patient was started on Cardizem drip. At present, the patient denies any chest pain or discomfort. He still has some shortness of breath, but it is much better. He has no PND or orthopnea. His pedal edema is still there at 1 to 2+. The patient denies any chest pain or discomfort. There are no TIA or CVA symptoms. There is no syncope. Past medical history is negative for hypertension, although the patient states he has not checked his blood pressure in a long time and has not seen any doctor in recent times. He could have had untreated hypertension. He denies diabetes mellitus. There is no prior history of prior atrial fibrillation or leg edema. There is no past history of congestive heart failure. No history of rheumatic fever. No history of coronary heart disease. No history of diabetes mellitus. No history of thyroid disease. No history of kidney disease. No history of TIA or CVA. No history of COPD or asthma. No history of sleep apnea. No history of pulmonary embolism. No history of DVT. No history of hemoptysis. PAST SURGICAL HISTORY: He states that some years ago he had cardiac catheterization which was negative. FAMILY HISTORY: Positive for hypertension in his mother and coronary artery disease with IN in his mother. ALLERGIES: No known allergies. SOCIAL HISTORY: The patient quit smoking many years ago. There is no history of EtOH abuse or EtOH use. MEDICATIONS: Include: 1. He is on IV Cardizem at 10 mg per hour, continuous transfusion. 2. He did receive aspirin 324 mg p.o. x1 yesterday. 3. He is on Lovenox 80 mg subcutaneously q.12 h. 4. He is on Lasix 40 mg IV push q.12 h. 5. He is on Zofran 4 mg IV q.6 h. p.r.n. 6. He is also on Colace 100 mg p.o. b.i.d. 7. He is on Prevacid 30 mg p.o. at 6:00 a.m. 8. He is also on diltiazem 60 mg p.o. q.6 h. REVIEW OF SYSTEMS: CONSTITUTIONAL: Denies any fever, chills, or rigors but complains of generalized fatigue and decreased effort intolerance. HEAD: No history of head injury or headaches. EYES: No history of amblyopia or diplopia. No history of amaurosis fugax. EARS: No history of hearing loss. No history of tinnitus. No history of vertigo. NOSE: No history of hay fever. No nosebleeds. MOUTH: No history of altered taste sensation. No history of ulcers in the mouth. No bleeding from the gums. THROAT: No odynophagia or dysphagia. No recurrent sore throats. SKIN: No pruritus. No yellowish discoloration of the skin. No skin cancer. NECK: Denies any swelling in the neck. No lymphadenopathy. No history of goiter. LUNGS: No history of cough or wheezing. No history of sputum production. There is no history of hemoptysis. No history of sleep apnea. No history of asthma or COPD. No history of pulmonary embolism. No history of pleuritic chest pain. The patient denies any wheezing or any symptoms suggestive of upper respiratory tract infection or symptoms suggestive of bronchitis or pneumonia. CARDIAC: Denies past history of hypertension, but the patient may have untreated hypertension since when he came in his blood pressure was very high in the accelerated/malignant hypertension range when he was in atrial fibrillation with rapid ventricular response. He denies prior history of prior atrial fibrillation. The patient states only since the last 5 days he has had some intermittent palpitations. There is no dizziness or syncope. There is no history of CAD and no history of IN or anginal symptoms. No history of PND or orthopnea. History of leg edema as mentioned above. No syncope. GASTROINTESTINAL: No history of GI bleed. No history of peptic ulcer disease. No history of fatty food intolerance. No history of abdominal pain. No history of decreased appetite. No history of hematemesis or melena. ENDOCRINE: No history of diabetes mellitus. No history of polydipsia or polyuria. No history of heat or cold intolerance. No history of thyroid disease. MUSCULOSKELETAL: Denies arthritis or collagen vascular disease. METABOLIC: Denies any history of gout or hyperlipidemia. CENTRAL NERVOUS SYSTEM: No history of TIA or CVA. No history of sleep apnea. No history of headaches, migraines, or seizures. No history of gait imbalance. PSYCHIATRIC: No history of anxiety or depression. No history of suicidal ideation. VASCULAR: No history of calf or buttock claudication. No history of DVT. HEMATOLOGICAL: No history of bleeding diathesis. No history of clotting disorders. PHYSICAL EXAMINATION: GENERAL: At present, the patient does not seem to be in any immediate acute distress. He is mild to moderately obese. VITAL SIGNS: He is afebrile with a temperature of 98.2 degrees Fahrenheit. Pulse is 82 beats per minute. Blood pressure 104/79. Respirations are 16 per minute. O2 saturations are 93% on room air. HEAD: Atraumatic/normocephalic. EYES: Pupils are equal, round, regular, reactive to light and accommodation. Extraocular movements are normal. There is no conjunctival pallor. There is no scleral icterus. EARS: Tympanic membranes are intact. External auditory canals are clear. NOSE: There is no deviated nasal septum. There is no inflammation of the nasal mucous membranes. MOUTH: Mucous membranes of the mouth are moist. Tongue is moist. There are no ulcers. There is no bleeding from the gums. THROAT: There is no redness in the oropharynx. There is no exudate. SKIN: There are no skin rashes. There are no skin lesions. There is no petechia or ecchymosis. NECK: Supple. There is significant JVD present. Carotids are equal. There is no bruit. There is no lymphadenopathy. There is no goiter. Trachea is central. LUNGS: Absent breath sounds in both bases, otherwise rest of the lungs seem to be fairly clear. HEART: S1, S2 is heard. There is variable S1 in intensity. There is murmur of mitral regurgitation in the apex to the left axilla. Suspect there is an S3 gallop present. There is also a tricuspid regurgitation murmur. There is no murmur of aortic stenosis or aortic regurgitation. ABDOMEN: Soft, nontender. There is no hepatosplenomegaly. Bowel sounds are well heard. There are no tender areas or masses. EXTREMITIES: Femorals are deep, femorals are diminished, and there are no femoral bruits. Leg pulses are diminished. There is 1 to 2+ pedal edema. There is no cellulitis. There is no DVT. There is no cyanosis or clubbing. There is no calf tenderness. CENTRAL NERVOUS SYSTEM: The patient is conscious, awake, alert, oriented x3 with no focal deficit. PSYCHIATRIC: The patient's judgement and insight are intact. His affect is normal. DISPOSITION: The patient is a FULL CODE. His sister is his surrogate healthcare decision maker. Note, that the patient's sister and brother state that the patient is not always forthcoming in voicing complaints or any symptoms. DIAGNOSTIC DATA: The patient's EKG initially showed atrial fibrillation/flutter with rapid ventricular response, right axis deviation, ST-segment depression probably rate related. Chest x-ray shows minimal bibasilar atelectasis, very mild bilateral perihilar airspace disease worrisome for mild pulmonary edema, trace bilateral pleural effusions. The patient's CAT scan with contrast shows no pulmonary emboli. There is a 1.6 cm x 1 cm perivascular lymph node and 1.5 x 1 cm lymph node perivascular space. There is a 3 x 2.5 cm nodule of left lower pole of thyroid. There is no pulmonary emboli. There is dependent atelectasis in the bilateral lower lobes. There is moderate bilateral pleural effusion present right greater than left. There is no fluffy alveolar infiltrate worrisome for edema or pneumonia. No pneumothorax. There is no aneurysm or dissection. The patient's white count is 8,300, hemoglobin is 11.7, hematocrit is 35.4, platelet count is 232,000. His ProTime is 13.6, INR is 1.01. His sodium is 138.2, potassium 4.4, chloride is 100, CO2 is 26, his BUN is 18, creatinine 0.99, GFR is greater than 60, glucose is 103, and his phosphorous is 5.1. His calcium is 8.0. His magnesium is 2.1. His cardiac enzymes have been negative x3. IMPRESSION: 1. Acute systolic heart failure (chronicity not known) secondary to accelerated hypertension, atrial fibrillation with rapid ventricular response, and mitral regurgitation by exam. 2. Atrial fibrillation with rapid ventricular response. This seems to be new onset, questionable onset most likely 4 to 5 days ago. 3. Right heart failure with a TR murmur and elevated JVD and leg edema, suspect significant pulmonary hypertension. 4. Severe mitral regurgitation, by exam. 5. Suspect untreated hypertension. 6. Suspect secondary pulmonary hypertension. RECOMMENDATIONS: Continue IV Cardizem, increase it as needed. I will get an echocardiography. Continue Lovenox for now. By history, the patient denies hypertension, and hence his CHADS Score would be 0, but with the patient coming in with a blood pressure of 180/120 systolic, the patient most likely has hypertension. Hence, his corrected CHADS VASC2 score would be 1 and hence would continue the anticoagulation. Would also get an echocardiography. Once the LV function and the pulmonary hypertension are known, then we can start the patient on beta blockers and TOBY inhibitors and stop the Cardizem. The patient also later would need a stress test and 30-day event monitor. All of the above discussed with the patient and patient's sister and [id number]. Note 50 minutes spent on this patient with more than 50% of the time spent on direct patient care. The patient's medications were reviewed, and the patient repeatedly was asked questions (history). And also, this was supplemented by the sister and the [id number]. Note, that the patient does have coronary artery disease risk factors, namely age, a family history of CAD and plus/minus hypertension, and also the patient's cholesterol/lipid status is not known. Discussed with the hospitalist and other caregivers. Will give 2.5 mg of metoprolol IV to see if the patient might slow down and convert to sinus rhythm. Will read the echocardiogram when available. DICTATING PHYSICIAN: FUENTES ANDERSON M.D. [id number] PHY#: [id number] ID: [id number] JOB#: [id number] ACCT: [id number] cc:FUENTES ANDERSON M.D. >
== END 2016-06-05 18:25 | disposition short-term general hospital (02) | DRG 291 ==
LOC: ER 09:50 → EH 14:28 → UNDOADMIN 14:28 → EH 14:48 → 3W 17:41 → ICU 06-05 15:17
PROC: 0BH17EZ Insertion of Endotracheal Airway into Trachea, Via Natural or Artificial Opening (ICD-10-PCS; principal; 2016-06-04)
PROC: 5A1935Z Respiratory Ventilation, Less than 24 Consecutive Hours (ICD-10-PCS; 2016-06-04)
PROC: 5A2204Z Restoration of Cardiac Rhythm, Single (ICD-10-PCS; 2016-06-05)
DX: I11.0 Hypertensive heart disease with heart failure (principal); J96.01 Acute respiratory failure with hypoxia; I46.9 Cardiac arrest, cause unspecified; I47.2 Ventricular tachycardia; I50.21 Acute systolic (congestive) heart failure; I48.91 Unspecified atrial fibrillation; I08.1 Rheumatic disorders of both mitral and tricuspid valves; I27.2 Other secondary pulmonary hypertension; Z82.49 Family history of ischemic heart disease and other diseases of the circulatory system; Z87.891 Personal history of nicotine dependence; Z78.1 Physical restraint status
CPT/HCPCS: 31500; 36415; 71010; 71275; 74000; 80048; 80053; 80307; 81001; 82550; 82553; 82803; 83735; 83880; 84100; 84132; 84439; 84443; 84481; 84484; 85025; 85027; 85610; 93005; 93010; 93306; 94002; 96365; 96366; 96372; 96375; 99291; 99292; J0171; J1650; J1940; J2370; J2704; J3490

== ENCOUNTER → 2016-12-20 | Outpatient (CLI) | payer BC ==
[2016-12-21 09:56] LABS: ALANINE AMINOTRANSFERASE 28 U/L (21-72); ALBUMIN 4.6 g/dL (3.5-5.0); ALKALINE PHOSPHATASE 84 U/L (38-126); ASPARTATE AMINO TRANSFERASE 26 U/L (17-59); BILIRUBIN,DIRECT 0.4 mg/dL (0.0-0.4); CHOLESTEROL 126.73 mg/dL (0-200); Direct HDL 24 mg/dL (>40); TOTAL PROTEIN 7.9 g/dL (6.3-8.2); TRIGLYCERIDES 156 mg/dL (<150)
[2016-12-21 10:07] LABS: DIRECT LDL 65 mg/dL (<100)
[2016-12-21 10:11] LABS: VLDL CHOLESTEROL 31.2 mg/dL (10-31)
== END ==
LOC: OD 07:45
PROVIDERS: ATTEND Specialist
DX: I25.10 Atherosclerotic heart disease of native coronary artery without angina pectoris (principal); R06.00 Dyspnea, unspecified; I48.0 Paroxysmal atrial fibrillation; I46.2 Cardiac arrest due to underlying cardiac condition; Z95.1 Presence of aortocoronary bypass graft; E78.5 Hyperlipidemia, unspecified; Z79.899 Other long term (current) drug therapy
CPT/HCPCS: 36415; 80061; 80076